=== PATIENT | male | born 1955 | race Asian ===

== ENCOUNTER 2018-03-22 16:47 | Emergency (ER) | payer MEDICAID ==
[~2018-03-22] VITALS: Ht 157.5 cm; Wt 67.2 kg
[~2018-03-22 16:47] MED LIST: AMLO5TAB7 PO; ASPI-515 PO; ATOR40TA78 PO; BISO5TAB11 PO; CARV3.1212 PO; CARV6.252 PO; CLOP75TA PO; CLOP75TA52 PO; ENAL5TAB PO; GLIM2TAB2 PO; ISOS30TA8 PO; LISI5TAB7 PO; MAG355OR15 PO; MECL-82 PO; METF100010 PO; METF500T17 PO; OMEP-110 PO; ONDA4TAB10 PO; TEMA15CA6 PO; [UNRECOGNIZED DRUG - OTHER] PO
[2018-03-22 16:51] VITALS: BP 108/75
== END 2018-03-22 19:04 | disposition home or self-care (01) ==
LOC: ED 18:37
DX: S39.012A Strain of muscle, fascia and tendon of lower back, initial encounter (principal); S16.1XXA Strain of muscle, fascia and tendon at neck level, initial encounter; I10 Essential (primary) hypertension; E11.9 Type 2 diabetes mellitus without complications; I25.2 Old myocardial infarction; I25.10 Atherosclerotic heart disease of native coronary artery without angina pectoris; E78.00 Pure hypercholesterolemia, unspecified; V59.49XA Driver of pick-up truck or van injured in collision with other motor vehicles in traffic accident, initial encounter; Y93.89 Activity, other specified; Y92.89 Other specified places as the place of occurrence of the external cause; Y99.8 Other external cause status
CPT/HCPCS: 72040; 72110; 72125; 99284

== ENCOUNTER 2018-12-06 08:50 | Outpatient (CLI) | payer MEDICAID ==
[~2018-12-06 08:50] MED LIST changes: +AMLO-150 PO; -AMLO5TAB7 PO
== END 2018-12-06 23:59 | disposition home or self-care (01) ==
LOC: RAD 08:50
PROVIDERS: ATTEND Nurse Practitioner Family
DX: K21.9 Gastro-esophageal reflux disease without esophagitis (principal); R14.2 Eructation; E11.9 Type 2 diabetes mellitus without complications; R11.10 Vomiting, unspecified
CPT/HCPCS: 78264; A9541

== ENCOUNTER 2019-02-08 15:43 | Inpatient (IN) | payer MEDICAID ==
[~2019-02-08] VITALS: Ht 157.5 cm; Wt 68.7 kg
[2019-02-11 07:05] VITALS: BP 122/87
== END 2019-02-11 10:40 | disposition home or self-care (01) | DRG 314 ==
LOC: ED 17:45 → EDIP 17:50 → ED 19:24 → CCU 20:33 → 4EST 02-09 12:44 → DCLOUNGE 02-11 10:25
PROVIDERS: ADMIT Internal Medicine; ATTEND Internal Medicine
PROC: 02HV33Z Insertion of Infusion Device into Superior Vena Cava, Percutaneous Approach (ICD-10-PCS; principal; 2019-02-08)
PROC: B548ZZA Ultrasonography of Superior Vena Cava, Guidance (ICD-10-PCS; 2019-02-08)
DX: I95.9 Hypotension, unspecified (principal); N17.0 Acute kidney failure with tubular necrosis; E27.40 Unspecified adrenocortical insufficiency; E44.0 Moderate protein-calorie malnutrition; I13.0 Hypertensive heart and chronic kidney disease with heart failure and stage 1 through stage 4 chronic kidney disease, or unspecified chronic kidney disease; I50.22 Chronic systolic (congestive) heart failure; N39.0 Urinary tract infection, site not specified; E11.22 Type 2 diabetes mellitus with diabetic chronic kidney disease; E78.5 Hyperlipidemia, unspecified; E86.0 Dehydration; I25.10 Atherosclerotic heart disease of native coronary artery without angina pectoris; K21.9 Gastro-esophageal reflux disease without esophagitis; K76.0 Fatty (change of) liver, not elsewhere classified; N18.2 Chronic kidney disease, stage 2 (mild); I25.2 Old myocardial infarction; Z79.899 Other long term (current) drug therapy; Z95.5 Presence of coronary angioplasty implant and graft; Z68.27 Body mass index [BMI] 27.0-27.9, adult
CPT/HCPCS: 36415; 36569; 71045; 80053; 80061; 81001; 82533; 82962; 83036; 83605; 83735; 84145; 84439; 84443; 84484; 85025; 87040; 87081; 87086; 93005; 93306; 93880; 96361; 96365; 96368; G0378; J0610; J0696; J0834; J1815; J7030; J7050

== ENCOUNTER 2020-02-10 09:41 | Observation (INO) | payer MEDICAID ==
[~2020-02-10] VITALS: Ht 157.5 cm; Wt 65.7 kg
[~2020-02-10 09:41] MED LIST changes: -GLIM2TAB2 PO; +GLIM2TAB7 PO
--- NOTE | 2020-02-10 10:00 | NUR ---
pt to ed c/o dizziness. started last night. sb on monitor 50s. a&ox4 gcs 15. thinks r/t either not drinking enought or L ear feels "poppy". room spinning. took an otc medc yest w/ no relief. denies cp/sob. hx dmII, sts bgl in 130s at home. bp wnl. denies blurry vision/vomiting. call samayoa in reach, report to basia chavez in room for sepideh. as
[2020-02-10] MEDS ORDERED: MECLIZINE CHEWABLE 25 MG TAB ONE (10:27)
[2020-02-10] MEDS ORDERED: ONDANSETRON 2MG/ML, 2ML ONE (10:27)
[2020-02-10 10:30] LABS: BASOPHILS # (AUTO) 0.01 x10^3/uL (0-0.1); BASOPHILS % (AUTO) 0 % (0-1); EOSINOPHILS # (AUTO) 0.12 x10^3/uL (0-0.4); EOSINOPHILS % (AUTO) 2 % (1-7); LYMPHOCYTES # (AUTO) 1.11 x10^3/uL (1-3.4); LYMPHOCYTES % (AUTO) 17 % (22-44); MD NO; MEAN CORPUSCULAR HEMOGLOBIN 28.3 pg (27.5-34.5); MEAN CORPUSCULAR HGB CONC 32.4 g/dL (33.2-36.2); MEAN CORPUSCULAR VOLUME 87.3 fL (81-97); MEAN PLATELET VOLUME 7.8 fL (7.4-10.4); MONOCYTES # (AUTO) 0.46 x10^3/uL (0.2-0.8); MONOCYTES % (AUTO) 7 % (2-9); NEUTROPHILS # (AUTO) 4.94 x10^3/uL (1.8-6.8); NEUTROPHILS % (AUTO) 75 % (42-75); PLATELET COUNT 270 x10^3/uL (130-400); RED BLOOD COUNT 5.31 x10^6/uL (4.38-5.82); RED CELL DISTRIBUTION WIDTH 13.4 % (9.4-14.8)
[2020-02-10] MEDS ORDERED: SODIUM CHLORIDE FLUSH 10ML SYR IVF ONE (10:30)
[2020-02-10] MEDS ORDERED: MECLIZINE CHEWABLE 25 MG TAB PO ONE (10:30)
[2020-02-10] MEDS ORDERED: ONDANSETRON 2MG/ML, 2ML IVPush ONE (10:30)
[2020-02-10 10:40] LABS: INTERNATIONAL NORMALIZED RATIO 0.97 (0.93-1.1)
[2020-02-10 10:41] LABS: ANION GAP 5 mmol/L (5-15); CALCIUM 9.2 mg/dL (8.5-10.1); CHLORIDE 107 mmol/L (98-107); CREATININE 1.12 mg/dL (0.7-1.3)
[2020-02-10 10:45] LABS: TROPONIN I < 0.015 ng/mL (0.000-0.045)
[2020-02-10] MEDS ORDERED: OMNIPAQUE 350 MG/ML, 75ML BOTTLE ONE (11:19)
--- NOTE | 2020-02-10 11:23 | NUR ---
PT BACK FROM CT. CALL LIGHT IN REACH, ALL MONITORING EQUIPMENT REATTACHED.
--- NOTE | 2020-02-10 12:13 | NUR ---
in room to ambulate pt. pt resting. hr of 48 observed on monitor. provider made aware.
[2020-02-10] MEDS ORDERED: DIAZEPAM 5 MG/ML, 2ML ONE (12:21)
[2020-02-10] MEDS ORDERED: DIAZEPAM 5 MG/ML, 2ML IV ONE (12:30)
[2020-02-10] MEDS ORDERED: ACETAMINOPHEN 325 MG TABLET PO PRN (14:30)
[2020-02-10] MEDS ORDERED: ZOLPIDEM 5MG TABLET PO PRN (14:30)
[2020-02-10] MEDS ORDERED: MELATONIN 5 MG TABLET PO PRN (14:30)
[2020-02-10] MEDS ORDERED: POLYETHYLENE GLYCOL 17 GM PACKET PO PRN (14:30)
[2020-02-10] MEDS ORDERED: MECLIZINE 25 MG TABLET PO PRN (14:30)
[2020-02-10] MEDS ORDERED: DIAZEPAM 5 MG/ML, 2ML IV PRN (14:30)
[2020-02-10] MEDS ORDERED: ONDANSETRON 2MG/ML, 2ML IVPush PRN (14:30)
[2020-02-10] MEDS ORDERED: LIDODERM 5% PATCH TD PRN (14:30)
[2020-02-10] MEDS ORDERED: BISACODYL 10 MG SUPP PR PRN (14:30)
[2020-02-10] MEDS ORDERED: hydrALAzine 20 MG/ML, 1ML IVPush PRN (14:30)
[2020-02-10] MEDS ORDERED: HYDROcodone/APAP 5/325 TABLET PO PRN (14:30)
[2020-02-10] MEDS ORDERED: PLEASE ENTER WEIGHT MC SCH (15:00)
[2020-02-10 15:02] LABS: FREE T4 (FREE THYROXINE) 0.97 ng/dL (0.76-1.46)
--- NOTE | 2020-02-10 15:04 | NUR ---
PT STATES RELIEF OF DIZZINES POST EATING LUNCH. PT WAS ABLE TO WALK ENTIRE LENGTH OF HALLWAY WITH NO SYMPTOMS.
[2020-02-10 15:48] LABS: HCT (SEDRATE) 46.4 % (39.2-51.8)
[2020-02-10 16:16] VITALS: BP 104/73
[2020-02-10 16:19] VITALS: BP 109/68
[2020-02-10] MEDS: NS + 20MEQ KCL 1,000 ML IV SCH (16:47)
[2020-02-10] MEDS: INSULIN LISPRO 100 UNITS/ML, PEN SQ-INSULIN SCH ×2 (16:47→21:03)
[2020-02-10 16:56] VITALS: BP 122/80
[2020-02-10 17:12] VITALS: BP_SYST 111; BP_SYST 118; BP_SYST 122; BP_DIAS 73; BP_DIAS 75; BP_DIAS 80
[2020-02-10 17:13] LABS: MICROSCOPIC NOT IND
[2020-02-10 19:09] VITALS: BP 114/71
[2020-02-10] MEDS ORDERED: ATORVASTATIN 40 MG TABLET PO SCH (21:00)
[2020-02-10] MEDS: HEPARIN 5,000 UNITS/ML, 1ML SQ SCH (21:04)
[2020-02-10] MEDS: FAMOTIDINE 20 MG TABLET PO SCH (21:04)
[2020-02-11 01:10] VITALS: BP 111/75
[2020-02-11] MEDS: NS + 20MEQ KCL 1,000 ML IV SCH (02:42)
[2020-02-11] MEDS: HEPARIN 5,000 UNITS/ML, 1ML SQ SCH ×2 (05:09→11:02)
[2020-02-11 06:45] LABS: ALBUMIN 3.3 g/dL (3.4-5.0); ANION GAP 5 mmol/L (5-15); CALCIUM 8.1 mg/dL (8.5-10.1); CHLORIDE 111 mmol/L (98-107)
[2020-02-11 06:47] LABS: ALANINE AMINOTRANSFERASE 28 U/L (12-78); ALKALINE PHOSPHATASE 58 U/L (45-117); BILIRUBIN,TOTAL 0.9 mg/dL (0.2-1.0); TOTAL PROTEIN 6.4 g/dL (6.4-8.2)
[2020-02-11] MEDS: INSULIN LISPRO 100 UNITS/ML, PEN SQ-INSULIN SCH ×2 (07:00→11:00)
[2020-02-11 07:43] VITALS: BP 123/73
[2020-02-11] MEDS ORDERED: ASPIRIN 81 MG TABLET EC PO SCH (09:00)
[2020-02-11] MEDS ORDERED: metFORMIN 500 MG TABLET PO SCH (09:00)
[2020-02-11] MEDS ORDERED: CLOPIDOGREL 75 MG TABLET PO SCH (09:00)
[2020-02-11] MEDS ORDERED: GLIMEPIRIDE 1 MG TABLET PO SCH (09:00)
[2020-02-11] MEDS: FAMOTIDINE 20 MG TABLET PO SCH (11:02)
[2020-02-11 13:07] VITALS: BP 136/86
[2020-02-11] MEDS ORDERED: MECL-101 PO (15:13)
== END 2020-02-11 15:14 | disposition home or self-care (01) ==
LOC: ED 12:44 → EDIP 13:01 → INTOOBSV 13:01 → 5SO 15:19
PROVIDERS: ADMIT Internal Medicine; ATTEND Hospitalist
DX: I25.10 Atherosclerotic heart disease of native coronary artery without angina pectoris (principal); R42 Dizziness and giddiness; I11.0 Hypertensive heart disease with heart failure; I50.42 Chronic combined systolic (congestive) and diastolic (congestive) heart failure; E10.65 Type 1 diabetes mellitus with hyperglycemia; K21.9 Gastro-esophageal reflux disease without esophagitis; R00.1 Bradycardia, unspecified; K76.0 Fatty (change of) liver, not elsewhere classified; E78.5 Hyperlipidemia, unspecified; Z86.39 Personal history of other endocrine, nutritional and metabolic disease; Z87.440 Personal history of urinary (tract) infections; Z95.5 Presence of coronary angioplasty implant and graft; Z79.899 Other long term (current) drug therapy
CPT/HCPCS: 36415; 70470; 71045; 80048; 80053; 81003; 82040; 82962; 83036; 83880; 84439; 84443; 84484; 85025; 85610; 85651; 93005; 93306; 96361; 96372; 96374; 96375; 97161; 99285; G0378; J1644; J1815; J2405; J3360; J3480; Q9967